=== PATIENT | male | born 1955 | race Caucasian/White ===

== ENCOUNTER 2021-07-16 12:17 | Day surgery (SDC) | payer OTHER ==
[~2021-07-16] VITALS: Ht 172.7 cm; Wt 79.3 kg
[~2021-07-16 12:17] MED LIST: ALBU90OI; AMIT75 PO; AMLO10 PO; ANORO ELLIPTA1 EACH; Amoxicillin500 MG PO; CLON.1 PO; DICMIS75EC PO; GABA300 PO; METCAR500 PO; NAPR550 PO; OXYACE5T PO; OXYC30 PO; PROC10 PO; Peridex480 ML PO; Prinivil10 MG; Ultram50 MG PO
--- NOTE | 2021-07-16 12:45 | NUR ---
07/16/21 1245 Ángel Roberson CALL LIGHT WITHIN REACH. EYE DROPS AT 1241 PLEDGETT AT 1241
== END 2021-07-16 14:24 | disposition home or self-care (01) ==
LOC: ORSCSDS 12:17
PROVIDERS: Ophthalmology
PROC: 08RJ3JZ Replacement of Right Lens with Synthetic Substitute, Percutaneous Approach (ICD-10-PCS; principal; 2021-07-16 13:30)
DX: H25.11 Age-related nuclear cataract, right eye (principal); I10 Essential (primary) hypertension; J44.9 Chronic obstructive pulmonary disease, unspecified; F17.210 Nicotine dependence, cigarettes, uncomplicated; Z79.899 Other long term (current) drug therapy
CPT/HCPCS: J2001; J2250; J3010; J3301; J7040; V2632

== ENCOUNTER 2021-08-13 11:50 | Day surgery (SDC) | payer OTHER ==
[~2021-08-13] VITALS: Ht 172.7 cm; Wt 79.9 kg
--- NOTE | 2021-08-13 12:09 | NUR ---
08/13/21 1209 CLAUDE CASTELLON TETRACAINE DROP INSTILLED AT 1205. PLEDGETT INSERTED AT 1206
--- NOTE | 2021-08-13 13:59 | NUR ---
08/13/21 Ángel Mead PT RESTING. AWAKE, ALERT, ORIENTED. PT DENIES ANY PAIN, TOLERATING SNACKS. VS WNL.
== END 2021-08-13 14:05 | disposition home or self-care (01) ==
LOC: ORSCSDS 11:50
PROVIDERS: Ophthalmology
PROC: 08RK3JZ Replacement of Left Lens with Synthetic Substitute, Percutaneous Approach (ICD-10-PCS; principal; 2021-08-13 13:00)
DX: H25.12 Age-related nuclear cataract, left eye (principal); I10 Essential (primary) hypertension; J44.9 Chronic obstructive pulmonary disease, unspecified; F17.210 Nicotine dependence, cigarettes, uncomplicated; Z79.899 Other long term (current) drug therapy
CPT/HCPCS: J2001; J2250; J3010; J3301; J7040; V2632

== ENCOUNTER 2022-06-29 11:45 | Inpatient (IN) | payer OTHER ==
[~2022-06-29] VITALS: Ht 172.7 cm; Wt 72.6 kg
[2022-06-29 12:13] LABS: BASOPHILS ABSOLUTE AUTO 0.05 K/mm3 (0.00-0.23); BASOPHILS PERCENT AUTO 1 % (0-2); EOSINOPHILS ABSOLUTE AUTO 0.08 K/mm3 (0.00-0.68); EOSINOPHILS PERCENT AUTO 1 % (0-6); Hematocrit 50.5 % (37.0-53.0); Hemoglobin 16.8 g/dL (13.5-17.5); IMMATURE GRAN ABSOLUTE AUTO 0.02 K/mm3 (0.00-0.10); IMMATURE GRAN PERCENT AUTO 0 % (0-1); LYMPHOCYTES ABSOLUTE AUTO 1.53 K/mm3 (0.84-5.20); LYMPHOCYTES PERCENT AUTO 21 % (21-46); MONOCYTES ABSOLUTE AUTO 0.37 K/mm3 (0.16-1.47); MONOCYTES PERCENT AUTO 5 % (4-13); Mean Corpuscular HGB 30.3 pg (26.0-34.0); Mean Corpuscular HGB Conc 33.3 g/dL (31.5-36.5); Mean Corpuscular Volume 91 fL (80-100); Mean Platelet Volume 9.1 fL (9.1-12.4); NEUTROPHILS PERCENT AUTO 72 % (41-73); Platelet Count 333 K/mm3 (150-400); RDW Coefficient Variation 13.3 % (11.7-14.2); RDW Standard Deviation 45.1 fL (35.1-46.3); Red Blood Cell Count 5.55 M/mm3 (4.30-5.90); White Blood Cell Count 7.45 K/mm3 (4.00-11.30)
[2022-06-29 12:34] LABS: Alanine Aminotransfer (ALT/SGP 27 U/L (12-78); Albumin, Blood 4.4 g/dL (3.4-5.0); Albumin/Globulin Ratio 1.3 (0.8-1.8); Alk Phos 102 U/L (50-136); Anion Gap 9 mmol/L (6-16); Aspartate Aminotrans (AST/SGOT 20 U/L (12-37); Bilirubin, Total 0.9 mg/dL (0.1-1.0); Blood Urea Nitrogen 8 mg/dL (8-24); Bun/Creatinine Ratio 9.6 (12.0-20.0); CO2, Blood 25 mmol/L (21-32); Calcium, Blood 9.5 mg/dL (8.5-10.1); Chloride, Blood 107 mmol/L (98-108); Creatinine, Blood 0.83 mg/dL (0.60-1.20); Ethanol (Alcohol), Blood, Med <3 mg/dL; Globulin, Blood 3.3 g/dL (2.2-4.0); Glomerular Filtration Rate 96 (60-); Glucose, Blood 109 mg/dL (70-99); Potassium, Blood 4.1 mmol/L (3.5-5.5); Sodium, Blood 141 mmol/L (136-145); Total Protein, Blood 7.7 g/dL (6.4-8.2)
--- NOTE | 2022-06-29 16:39 | NUR ---
Echocardiogram using 9.0ml of agitated saline contrast performed.
--- NOTE | 2022-06-29 18:39 | NUR ---
Pt arrived from ED to 359 via gurney, he is able to stand and transfer to bed with sba, a/ox3, very upset about being admitted, but is cooperative with care, follows commands well, states his only pain is back pain, lungs are clear t/o, resp even and unlabored, no cough noted, hrr, no edema noted to b/l le, ppp+2, cap refill <3sec, vs high b/p, iv to rac s.l. site is clear and patent, btx4, abd flat soft nontender, voids without diff, skin c/w/d, maew, left skid man is a bit weaker than right, left dpfe is equal but leans to left when ambulating, left facial droop, swallows without diff, states he's hungry, oriented to room layout and call system, call light in reach.
[2022-06-30 04:59] LABS: CHOL/HDL RATIO 3.3; Cholesterol 152 mg/dL (50-200); HDL Cholesterol 46 mg/dL (>39); LDL/HDL RATIO 1.9; Low Density Lipoprotein Chol 89 mg/dL (0-110); Triglycerides 87 mg/dL (30-160); Very Low Density Lipoprot Chol 17 mg/dL (6-32)
--- NOTE | 2022-06-30 11:09 | NUR ---
RN NOTE MR CHOPRA HAS ELEVATED BP. GIVEN 0900 MEDS AND RECHECKED, THEN GIVEN PO HYDRALYZINE. HE SAID THAT HIS BLOOD PRESSURE WILL NOT COME DOWN LONG HE'S IN THE HOSPITAL HE'S SO IRRITATED ABOUT BEING HERE. OT AND PT WENT IN THE ROOM TO ATTEMPT TO DO THERAPY TODAY. HE SAID THAT HE IS UNHAPPY ABOUT HAVING TELEMETRY AND HAVING PIV IN PLACE. HE HAS AGREED TO TAKE MEDICATIONS. HE SAID THAT HE WANTS TO BE DISCHARGED FROM THE HOSPITAL TODAY ONCE HE SEES HIS DOCTOR. HE DID GET UP TO THE CHAIR, SAID THAT HE HAS BEEN GOING IN TO THE BATHROOM INDEPENDENTLY, BUT I HAVE NOT WITNESSED HIM WALKING. PERRL. 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 ABLE TO TOUCH R AND L INDEX FINGERS TO NOSE AND KEEP ARMS LEVEL AND STEADY RAISED UP IN FRONT OF HIM. BED LOW, CALL LIGHT IN REACH.
--- NOTE | 2022-06-30 12:32 | NUR ---
LEFT AMA MR CHOPRA LEFT AMA AT NOON TODAY. SOON HIS ARRIVED HE SAID THAT HE WANTED TO LEAVE THE HOSPITAL. I CALLED DR MARIE WHO SAID HE WOULD GO TO SEE MR CHOPRA NEXT. I ASKED MR CHOPRA IF HE WOULD WAIT TO SEE DR MARIE, THAT HE WOULD BE IN SHORTLY BUT HE SAID NO, HE WANTED TO GO HOME AMA WITHOUT SEEING THE DOCTOR. HE SIGNED AMA PAPERWORK. HE HAS POOR VISION SO I READ THE PAPERWORK TO HIM, EXPLAINING THE RISKS, PLUS HIS WITNESSED THE SIGNATURE ON THE AMA FORM. PIV REMOVED INTACT. TRANSITION NURSE REMOVED. DR MARIE INFORMED THAT PT LEFT AMA. CHARGE NURSE AWARE. PT WALKED OFF THE UNIT WITH HIS .
== END 2022-06-30 12:03 | disposition left against medical advice (07) | DRG 65 ==
LOC: ER 11:45 → ERHOLD 11:46 → MEDS 18:15
PROVIDERS: Nurse Practitioner Acute Care; Physician Assistant; ADMIT Student in an Organized Health Care Education/Training Program
DX: I63.89 Other cerebral infarction (principal); G81.94 Hemiplegia, unspecified affecting left nondominant side; M54.9 Dorsalgia, unspecified; G89.29 Other chronic pain; I10 Essential (primary) hypertension; F17.200 Nicotine dependence, unspecified, uncomplicated; J44.9 Chronic obstructive pulmonary disease, unspecified; R47.81 Slurred speech; Z91.14 Patient's other noncompliance with medication regimen
CPT/HCPCS: 36415; 70450; 80053; 80061; 82947; 83036; 85025; 93005; 93010; 93306; 93880; 94640; 94664; 94760; 96372; 96374; 96375; 96376; 97165; 97535; 99285-25; A9270; G0378; G0480; J1650; J2060; J3010